=== PATIENT | male | born 1950 | race Caucasian/White ===

== ENCOUNTER → 2024-11-20 | Day surgery (SDC) | payer MEDICARE ==
[2024-11-19 09:47] VITALS: BMI 29.7
[~2024-11-20] MED LIST: AFRIN NASAL MIST 15 ML BOT ONE; CEFAZOLIN 2 GM VIAL ONE; Glycopyrrolate 0.2 MG/ML 5 ML SYRINGE ONE; HYDROcodone/Acetaminophen 5/325 mg Tablet ONE; Lidocaine 1% PF 5 ML VIAL ONE; Lidocaine 1% w/Epinephrine 1:200K 30 ML VIAL ONE; Ondansetron PF 4 MG/2 ML Vial ONE; PROPOFOL 40 ML ONE; Rocuronium Bromide 10 MG/ML (10ML VIAL) ONE; SUGAMMADEX SODIUM 200 MG/2 ML VIAL ONE; Sevoflurane 250 ML INH ANEST BOTTLE ONE
[2024-11-20 07:00] LABS: Hematocrit 46.0 % (38.8-50.0); Hemoglobin 15.5 g/dL (13.5-17.5)
[2024-11-20 07:30] LABS: Anion Gap 16 mmol/L (10-20); BUN (Urea Nitrogen) 32 mg/dL (8.4-25.7); Calc. Creatinine Clearance 72 mL/min (70-130); Calcium 8.7 mg/dL (7.8-10.44); Carbon Dioxide 21 mmol/L (23-31); Chloride 105 mmol/L (98-107); Glucose 110 mg/dL (83-110); Potassium 4.0 mmol/L (3.5-5.1); Sodium 138 mmol/L (136-145)
== END ==
LOC: CSHSDC 06:07
PROVIDERS: ATTEND Otolaryngology Otolaryngic Allergy
PROC: XWHD7Q7 Insertion of Neurostimulator Lead into Mouth and Pharynx, Via Natural or Artificial Opening, New Technology Group 7 (ICD-10-PCS; principal; 2024-11-20)
DX: G47.33 Obstructive sleep apnea (adult) (pediatric) (principal); Z68.31 Body mass index [BMI] 31.0-31.9, adult
CPT/HCPCS: 42975; 64582; 80048; 85014; 85018; C1778 ×2; C1820; J0169; J1100; J2405; J2704; J3010; J3373; 36415; C1787

== ENCOUNTER 2025-01-02 13:57 | Outpatient (CLI) | payer MEDICARE | END 2025-01-02 13:58 | disposition home or self-care (01) | LOC: CSHMRI 13:57 | PROVIDERS: ATTEND Orthopaedic Surgery | DX: M47.26 Other spondylosis with radiculopathy, lumbar region (principal); M51.362 Other intervertebral disc degeneration, lumbar region with discogenic back pain and lower extremity pain; M48.061 Spinal stenosis, lumbar region without neurogenic claudication | CPT/HCPCS: 72148 ==